=== PATIENT | female | born 1960 | race Two or more races ===

== ENCOUNTER 2021-05-07 06:19 | Day surgery (SDC) | payer OTHER ==
[~2021-05-07 06:19] MED LIST: ANASTROZOLE1 MG PO; LEVOTHYROXINE25 MCG PO
== END 2021-05-07 17:35 | disposition home or self-care (01) ==
LOC: CIR.AMB 06:19
PROVIDERS: ATTEND Surgery
DX: C50.411 Malignant neoplasm of upper-outer quadrant of right female breast (principal); C77.3 Secondary and unspecified malignant neoplasm of axilla and upper limb lymph nodes

== ENCOUNTER 2021-06-15 14:11 | Outpatient (CLI) | payer OTHER | END 2021-06-15 14:20 | disposition home or self-care (01) | LOC: SONOGRAMA 14:11 | PROVIDERS: ATTEND Surgery | DX: N61.1 Abscess of the breast and nipple (principal) ==

== ENCOUNTER 2025-04-16 10:33 | Inpatient (IN) | payer OTHER ==
[~2025-04-16] VITALS: Ht 152.4 cm; Wt 78.5 kg
[~2025-04-16 10:33] MED LIST changes: +PEPCID AC10 MG PO; +PROTONIX40 MG PO; +SYNTHROID50 MCG PO; +[UNRECOGNIZED DRUG - OTHER]
[2025-04-22] MEDS ORDERED: CEFTRIAXONE SODIUM 2,000 MG VIAL ONE (09:38)
[2025-04-22] MEDS ORDERED: METRONIDAZOLE/SODIUM CHLORIDE 500 MG/100 ML PIGGYBACK IV ONE (09:38)
[2025-04-22] MEDS ORDERED: OxyCODONE HCL 5 MG TABLET (ROXICODONE) PO PRN (12:30)
[2025-04-22] MEDS ORDERED: MORPHINE SULFATE 4 MG/ML CARTRIDGE IV PRN (12:30)
[2025-04-22] MEDS ORDERED: RINGERS SOLUTION,LACTATED 1,000 ML IV SCH (12:30)
[2025-04-22] MEDS ORDERED: DEXTROSE 50 % IN WATER 0.5 G/ML VIAL IV PRN (12:30)
[2025-04-22] MEDS ORDERED: ONDANSETRON HCL 2 MG/ML VIAL IV PRN (12:30)
[2025-04-22] MEDS ORDERED: HYOSCYAMINE SULFATE 0.125 MG TAB.SUBL SL SCH (13:00)
[2025-04-22] MEDS ORDERED: ACETAMINOPHEN 500 MG GEL..CAP PO SCH (14:00)
[2025-04-22] MEDS ORDERED: SUGAMMADEX SODIUM 200 MG/2 ML VIAL IV ONE (15:04)
[2025-04-22] MEDS ORDERED: CHLORHEXIDINE GLUCONATE 120 ML BOTTLE TOP ONE (15:27)
[2025-04-22] MEDS ORDERED: ONDANSETRON HCL 2 MG/ML VIAL ONE (16:22)
[2025-04-22] MEDS ORDERED: GABAPENTIN 300 MG CAPSULE PO SCH (17:00)
[2025-04-22] MEDS ORDERED: LEVALBUTEROL HCL 0.63 MG/3 ML SOLUTION IH SCH (19:32)
[2025-04-22] MEDS ORDERED: INSULIN LISPRO 1,000 UNIT/10 ML UNITS SUBCUTANEO PRN (19:45)
[2025-04-22] MEDS ORDERED: DEXTROSE 50 % IN WATER 0.5 G/ML DISP.SYRIN IV PRN (19:45)
[2025-04-22 20:23] LABS: BASO % 0.2 % (0.1-1.2); EOS # 0.00 (0.04-0.54); EOS % 0.0 % (0.7-7.0); LYMPH # 0.82 (1.18-3.74); LYMPH % 6.8 % (19.3-53.1); MEAN PLATELET VOLUME 9.30 fl (9.4-12.4); MONO # 0.77 (0.24-0.82); MONO % 6.4 % (4.7-12.5); NEUT # 10.36 (1.56-6.13); NEUT % 86.3 % (34.0-71.1); RED CELL DISTRIBUTION WIDTH 13.6 % (11.6-14.4)
[2025-04-22 20:26] LABS: BUN CREA RATIO 14.0 (7.0-25.0); CREATININE SERUM 0.84 mg/dL (0.55-1.02); GFR 67.83; OSMOLALITY SERUM 284.0 MOSM/KG (275-295)
[2025-04-22 20:28] LABS: GLUCOSE FASTING 211.0 mg/dL (65-100)
[2025-04-22] MEDS ORDERED: FAMOTIDINE/PF 20 MG/2 ML VIAL ONE (20:37)
[2025-04-22] MEDS ORDERED: FAMOTIDINE/PF 20 MG/2 ML VIAL IV PUSH SCH (21:00)
[2025-04-22 21:58] VITALS: BP 153/75
[2025-04-22 23:50] VITALS: BP 150/70; O2SAT 99
[2025-04-23 05:00] VITALS: BP 134/74
[2025-04-23 06:53] LABS: BASO % 0.1 % (0.1-1.2); EOS # 0.00 (0.04-0.54); EOS % 0.0 % (0.7-7.0); LYMPH # 0.61 (1.18-3.74); LYMPH % 6.3 % (19.3-53.1); MEAN PLATELET VOLUME 9.40 fl (9.4-12.4); MONO # 0.58 (0.24-0.82); MONO % 6.0 % (4.7-12.5); NEUT # 8.46 (1.56-6.13); NEUT % 87.4 % (34.0-71.1); RED CELL DISTRIBUTION WIDTH 13.7 % (11.6-14.4)
[2025-04-23 07:12] LABS: BUN CREA RATIO 12.0 (7.0-25.0); CREATININE SERUM 0.91 mg/dL (0.55-1.02); GFR 61.85; GLUCOSE FASTING 173.0 mg/dL (65-100); OSMOLALITY SERUM 279.0 MOSM/KG (275-295)
[2025-04-23 08:00] VITALS: BP 149/71
[2025-04-23] MEDS ORDERED: MAGNESIUM SULFATE IN WATER 50 ML IV ONE (08:15)
[2025-04-23] MEDS ORDERED: MAGNESIUM SULFATE IN WATER 50 ML IV NR (09:00)
[2025-04-23] MEDS ORDERED: ENOXAPARIN SODIUM 40 MG/0.4 ML SYRINGE SUBCUTANEO SCH (17:00)
[2025-04-23 19:17] VITALS: BP 140/69; O2SAT 95
[2025-04-23] MEDS ORDERED: ENOXAPARIN SODIUM 40 MG/0.4 ML SYRINGE SUBCUTANEO ONE (21:03)
[2025-04-24] VITALS: BP 148/79
[2025-04-24] MEDS ORDERED: PATIENTS OWN MEDICATION (MEDICAMENTO EN PISO) PO SCH (06:00)
[2025-04-24 07:08] LABS: BASO % 0.2 % (0.1-1.2); EOS # 0.01 (0.04-0.54); EOS % 0.1 % (0.7-7.0); LYMPH # 1.91 (1.18-3.74); LYMPH % 16.9 % (19.3-53.1); MEAN PLATELET VOLUME 9.40 fl (9.4-12.4); MONO # 0.71 (0.24-0.82); MONO % 6.3 % (4.7-12.5); NEUT # 8.62 (1.56-6.13); NEUT % 76.1 % (34.0-71.1); RED CELL DISTRIBUTION WIDTH 13.8 % (11.6-14.4)
[2025-04-24 07:27] LABS: BUN CREA RATIO 10.0 (7.0-25.0); CREATININE SERUM 0.7 mg/dL (0.55-1.02); GFR 83.72; GLUCOSE FASTING 146.0 mg/dL (65-100); OSMOLALITY SERUM 278.0 MOSM/KG (275-295)
[2025-04-24] MEDS ORDERED: ENOXAPARIN SODIUM 40 MG/0.4 ML SYRINGE SUBCUTANEO SCH (09:00)
[2025-04-24 09:01] VITALS: BP 112/69
[2025-04-24] MEDS ORDERED: POTASSIUM PHOS,M-BASIC-D-BASIC 3 MM/ML VIAL IV NR (13:00)
[2025-04-24 19:32] VITALS: BP 139/74
[2025-04-25] VITALS: BP 144/79
[2025-04-25 07:27] LABS: BASO % 0.2 % (0.1-1.2); EOS # 0.05 (0.04-0.54); EOS % 0.4 % (0.7-7.0); LYMPH # 1.34 (1.18-3.74); LYMPH % 11.5 % (19.3-53.1); MEAN PLATELET VOLUME 9.40 fl (9.4-12.4); MONO # 0.65 (0.24-0.82); MONO % 5.6 % (4.7-12.5); NEUT # 9.52 (1.56-6.13); NEUT % 82.0 % (34.0-71.1); RED CELL DISTRIBUTION WIDTH 13.5 % (11.6-14.4)
[2025-04-25 08:10] LABS: ALT/SGPT 33.0 U/L (12-78); AST/SGOT 18.0 U/L (15-37); BILIRUBIN TOTAL 0.69 mg/dL (0.3-1.2); BUN CREA RATIO 12.0 (7.0-25.0); CREATININE SERUM 0.86 mg/dL (0.55-1.02); GFR 66.02; GLOBULINA 3.2 G/DL (2.4-3.5); GLUCOSE FASTING 188.0 mg/dL (65-100); OSMOLALITY SERUM 278.0 MOSM/KG (275-295)
[2025-04-25 08:12] LABS: BUN CREA RATIO 12.0 (7.0-25.0); CREATININE SERUM 0.86 mg/dL (0.55-1.02); GFR 66.02; GLUCOSE FASTING 188.0 mg/dL (65-100); OSMOLALITY SERUM 278.0 MOSM/KG (275-295)
[2025-04-25 08:13] VITALS: BP 129/71; O2SAT 98
[2025-04-25] MEDS ORDERED: PANTOPRAZOLE SODIUM 40 MG/VIAL VIAL IV STA (08:40)
[2025-04-25 16:00] VITALS: BP 131/70; O2SAT 98
[2025-04-25 18:47] VITALS: BP 147/70; O2SAT 94
[2025-04-25] MEDS ORDERED: FAMOTIDINE/PF 20 MG/2 ML VIAL IV PUSH SCH (21:00)
[2025-04-26 00:40] VITALS: BP 135/74; O2SAT 95
[2025-04-26] MEDS ORDERED: PANTOPRAZOLE SODIUM 40 MG/VIAL VIAL IV SCH ×2 (06:00→12:00)
[2025-04-26 07:37] LABS: BASO % 0.1 % (0.1-1.2); EOS # 0.04 (0.04-0.54); EOS % 0.4 % (0.7-7.0); LYMPH # 1.09 (1.18-3.74); LYMPH % 9.8 % (19.3-53.1); MEAN PLATELET VOLUME 9.80 fl (9.4-12.4); MONO # 0.76 (0.24-0.82); MONO % 6.8 % (4.7-12.5); NEUT # 9.19 (1.56-6.13); NEUT % 82.6 % (34.0-71.1); RED CELL DISTRIBUTION WIDTH 13.4 % (11.6-14.4)
[2025-04-26 08:00] VITALS: BP 130/77; O2SAT 98
[2025-04-26 08:03] LABS: ALT/SGPT 28.0 U/L (12-78); AST/SGOT 16.0 U/L (15-37); BILIRUBIN TOTAL 0.75 mg/dL (0.3-1.2); BUN CREA RATIO 14.0 (7.0-25.0); CREATININE SERUM 0.79 mg/dL (0.55-1.02); GFR 72.81; GLOBULINA 3.1 G/DL (2.4-3.5); GLUCOSE FASTING 139.0 mg/dL (65-100); OSMOLALITY SERUM 277.0 MOSM/KG (275-295)
[2025-04-26] MEDS ORDERED: LEVALBUTEROL HCL 0.63 MG/3 ML SOLUTION IH SCH (09:00)
[2025-04-26 10:52] LABS: URINE APPEARANCE Clear; URINE BILIRRUBIN Negative (NEGATIVE); URINE BLOOD Large; URINE COLOR Yellow; URINE GLUCOSE Negative (NEGATIVE); URINE LEUKOCYTE Small; URINE NITRATE Negative; URINE UROBILINOGEN 0.2 E.U./dl
[2025-04-26 10:56] LABS: URINE BACTERIA 128.3 uL (0.0-1933); URINE EPITHELIAL CELLS 21.5 uL (0.0-38.8); URINE RBC 3448.9 uL (0.0-20.8); URINE WBC 66.4 uL (0.0-23.2)
[2025-04-26 11:49] LABS: URINE CAST 0.00 uL (0.0-1.40); URINE KETONE 80 (NEGATIVE); URINE PROTEIN 100 (NEGATIVE)
[2025-04-26 11:54] LABS: TYPE CELLS TRANSITIONAL
[2025-04-26] MEDS ORDERED: METOCLOPRAMIDE HCL 10 MG in DEXTROSE 5 % IN WATER 50 ML IV SCH (12:00)
[2025-04-26] MEDS ORDERED: PIPERACILLIN/TAZOBACTAM SODIUM 3.375 GM in 0.9 % SODIUM CHLORIDE 100 ML IV SCH (13:39)
[2025-04-26 16:00] VITALS: BP 128/70; O2SAT 97
[2025-04-26] MEDS ORDERED: AA 4.25%/CAL/LYTES/DEXT 5% 1,000 ML PERIFERAL SCH (17:00)
[2025-04-27 00:13] VITALS: BP 132/76; O2SAT 96
[2025-04-27 08:00] VITALS: BP 147/74; BP 148/72; O2SAT 98
[2025-04-27] MEDS ORDERED: MORPHINE SULFATE 4 MG/ML CARTRIDGE IV PRN (11:00)
[2025-04-27 13:44] LABS: BUN CREA RATIO 24.0 (7.0-25.0); CREATININE SERUM 0.71 mg/dL (0.55-1.02); GFR 82.36; GLUCOSE FASTING 193.0 mg/dL (65-100); OSMOLALITY SERUM 286.0 MOSM/KG (275-295)
[2025-04-27 15:43] LABS: BASO % 0.2 % (0.1-1.2); EOS # 0.05 (0.04-0.54); EOS % 0.4 % (0.7-7.0); LYMPH # 1.36 (1.18-3.74); LYMPH % 10.5 % (19.3-53.1); MEAN PLATELET VOLUME 9.50 fl (9.4-12.4); MONO # 0.88 (0.24-0.82); MONO % 6.8 % (4.7-12.5); NEUT # 10.58 (1.56-6.13); NEUT % 81.8 % (34.0-71.1); RED CELL DISTRIBUTION WIDTH 13.8 % (11.6-14.4)
[2025-04-27 16:00] VITALS: BP 131/78; O2SAT 97
[2025-04-27] MEDS ORDERED: PANTOPRAZOLE SODIUM 40 MG/VIAL VIAL IV SCH ×2 (17:00→21:00)
[2025-04-28 00:04] VITALS: BP 123/72; O2SAT 98
[2025-04-28] MEDS ORDERED: LORazepam 2 MG/ML VIAL IV NR (08:00)
[2025-04-28 08:43] VITALS: BP 165/78; O2SAT 96
[2025-04-28] MEDS ORDERED: DIATRIZOATE MEGLUMINE, SODIUM 30 ML BOTTLE PO ONE (12:00)
[2025-04-28] MEDS ORDERED: DIATRIZOATE MEGLUMINE, SODIUM 30 ML BOTTLE PO NR (12:00)
[2025-04-28 15:54] VITALS: BP 137/71; O2SAT 96
[2025-04-28 17:02] VITALS: BP 141/78; O2SAT 95
[2025-04-28] MEDS ORDERED: FAT EMULSIONS 250 ML IV SCH (21:00)
[2025-04-29 01:33] VITALS: BP 133/82; O2SAT 97
[2025-04-29 06:20] LABS: BASO % 0.3 % (0.1-1.2); EOS # 0.27 (0.04-0.54); EOS % 2.6 % (0.7-7.0); LYMPH # 1.18 (1.18-3.74); LYMPH % 11.5 % (19.3-53.1); MEAN PLATELET VOLUME 9.50 fl (9.4-12.4); MONO # 0.67 (0.24-0.82); MONO % 6.5 % (4.7-12.5); NEUT # 8.03 (1.56-6.13); NEUT % 78.5 % (34.0-71.1); RED CELL DISTRIBUTION WIDTH 13.8 % (11.6-14.4)
[2025-04-29 07:04] LABS: BUN CREA RATIO 25.0 (7.0-25.0); CREATININE SERUM 0.73 mg/dL (0.55-1.02); GFR 79.76; OSMOLALITY SERUM 283.0 MOSM/KG (275-295)
[2025-04-29 07:06] LABS: GLUCOSE FASTING 204.0 mg/dL (65-100)
[2025-04-29 09:31] VITALS: BP 145/57; O2SAT 98
[2025-04-29] MEDS ORDERED: MULTIVIT INFUSN,ADULT 4,VIT K 10 ML VIAL IV SCH (12:00)
[2025-04-29] MEDS ORDERED: THIAMINE HCL 100 MG/ML 2 ML VIAL IV NR (13:45)
[2025-04-29] MEDS ORDERED: SOD FERRIC GLUC COMPLX/SUCROSE 62.5 MG in 0.9 % SODIUM CHLORIDE 50 ML IV SCH (13:45)
[2025-04-29 17:08] VITALS: BP 150/81; O2SAT 95
[2025-04-29] MEDS ORDERED: MIDAZOLAM HCL 2 MG/2 ML VIAL IV PUSH ONE (18:15)
[2025-04-29] MEDS ORDERED: fentaNYL CITRATE 50 MCG/ML AMPUL IV PUSH ONE (18:15)
[2025-04-29] MEDS ORDERED: DIPHENHYDRAMINE HCL 50 MG/ML VIAL 1ML IV SCH (21:00)
[2025-04-30 01:27] VITALS: BP 121/74; O2SAT 98
[2025-04-30 07:32] LABS: BASO % 0.5 % (0.1-1.2); EOS # 0.31 (0.04-0.54); EOS % 4.9 % (0.7-7.0); LYMPH # 1.39 (1.18-3.74); LYMPH % 22.0 % (19.3-53.1); MEAN PLATELET VOLUME 10.50 fl (9.4-12.4); MONO # 0.54 (0.24-0.82); MONO % 8.5 % (4.7-12.5); NEUT # 3.98 (1.56-6.13); NEUT % 63.0 % (34.0-71.1); RED CELL DISTRIBUTION WIDTH 13.6 % (11.6-14.4)
[2025-04-30 08:00] LABS: ALT/SGPT 22.0 U/L (12-78); AST/SGOT 20.0 U/L (15-37); BILIRUBIN TOTAL 0.42 mg/dL (0.3-1.2); BUN CREA RATIO 33.0 (7.0-25.0); CREATININE SERUM 0.36 mg/dL (0.55-1.02); GFR 180.34; GLOBULINA 3.2 G/DL (2.4-3.5); GLUCOSE FASTING 169.0 mg/dL (65-100); OSMOLALITY SERUM 283.0 MOSM/KG (275-295)
[2025-04-30] MEDS ORDERED: CLONAZEPAM 0.5 MG TABLET PO PRN (08:45)
[2025-04-30] MEDS ORDERED: THIAMINE HCL 100 MG/ML 2 ML VIAL IV SCH (09:00)
[2025-04-30] MEDS ORDERED: SOD FERRIC GLUC COMPLX/SUCROSE 62.5 MG in 0.9 % SODIUM CHLORIDE 50 ML IV SCH (09:00)
[2025-04-30 09:04] VITALS: BP 141/68; O2SAT 98
[2025-04-30 16:37] VITALS: BP 128/74; BP 136/75; O2SAT 95
[2025-04-30] MEDS ORDERED: FAT EMULSIONS 250 ML IV SCH (21:00)
[2025-05-01 00:38] VITALS: BP 123/60; O2SAT 95
[2025-05-01 07:30] VITALS: BP 151/73; O2SAT 95
[2025-05-01] MEDS ORDERED: IOVERSOL 320 MG/ML - 50 ML VIAL IV ONE ×2 (15:50→15:51)
[2025-05-01] MEDS ORDERED: POVIDONE-IODINE 118 ML BOTT TOP ONE (15:51)
[2025-05-01 20:09] LABS: INR 1.08
[2025-05-02 00:49] VITALS: BP 138/62; O2SAT 95
[2025-05-02 06:16] LABS: BASO % 0.7 % (0.1-1.2); EOS # 0.24 (0.04-0.54); EOS % 3.2 % (0.7-7.0); LYMPH # 1.58 (1.18-3.74); LYMPH % 21.3 % (19.3-53.1); MEAN PLATELET VOLUME 9.40 fl (9.4-12.4); MONO # 0.42 (0.24-0.82); MONO % 5.7 % (4.7-12.5); NEUT # 5.02 (1.56-6.13); NEUT % 67.6 % (34.0-71.1); RED CELL DISTRIBUTION WIDTH 13.1 % (11.6-14.4)
[2025-05-02 07:10] LABS: BUN CREA RATIO 22.0 (7.0-25.0); CREATININE SERUM 0.41 mg/dL (0.55-1.02); GFR 155.21; GLUCOSE FASTING 137.0 mg/dL (65-100); OSMOLALITY SERUM 280.0 MOSM/KG (275-295)
[2025-05-02 08:54] VITALS: BP 101/54; O2SAT 97
[2025-05-02] MEDS ORDERED: MORPHINE SULFATE 4 MG/ML CARTRIDGE IV PRN (10:45)
[2025-05-02] MEDS ORDERED: MIDAZOLAM HCL 2 MG/2 ML VIAL IV PUSH ONE (17:00)
[2025-05-02] MEDS ORDERED: fentaNYL CITRATE 50 MCG/ML AMPUL IV PUSH ONE (17:00)
[2025-05-02 18:54] VITALS: BP 129/76; O2SAT 95
[2025-05-03 01:26] VITALS: BP 114/62; O2SAT 97
[2025-05-03 08:00] VITALS: BP 144/68; O2SAT 95
[2025-05-03 16:00] VITALS: BP 94/62; O2SAT 98
[2025-05-03] MEDS ORDERED: PIPERACILLIN/TAZOBACTAM SODIUM 3.375 GM in 0.9 % SODIUM CHLORIDE 100 ML IV SCH (18:00)
[2025-05-03] MEDS ORDERED: SODIUM CL 0.9% 50 ML IV.SOLN IV ONE (18:17)
[2025-05-04 00:35] VITALS: BP 106/62; O2SAT 97
[2025-05-04 08:00] VITALS: BP 134/68; O2SAT 95
[2025-05-04 16:54] VITALS: BP 121/72; O2SAT 98
[2025-05-05 01:20] VITALS: BP 137/74; O2SAT 97
[2025-05-05 07:24] LABS: BASO % 1.2 % (0.1-1.2); EOS # 0.30 (0.04-0.54); EOS % 5.2 % (0.7-7.0); LYMPH # 1.57 (1.18-3.74); LYMPH % 27.3 % (19.3-53.1); MEAN PLATELET VOLUME 9.50 fl (9.4-12.4); MONO # 0.31 (0.24-0.82); MONO % 5.4 % (4.7-12.5); NEUT # 3.46 (1.56-6.13); NEUT % 60.0 % (34.0-71.1); RED CELL DISTRIBUTION WIDTH 14.2 % (11.6-14.4)
[2025-05-05 07:50] LABS: INR 1.06
[2025-05-05 07:54] LABS: ALT/SGPT 25 U/L (12-78); AST/SGOT 19 U/L (15-37); BILIRUBIN TOTAL 0.25 mg/dL (0.3-1.2); BILIRUBIN,CONJUGATED < 0.10 mg/dL (0.0-0.2); BUN CREA RATIO 18 (7.0-25.0); CHOL HDL RATIO 7.2 (0-5.0); CREATININE SERUM 0.38 mg/dL (0.55-1.02); GFR 169.44; GLOBULINA 3.4 G/DL (2.4-3.5); GLUCOSE FASTING 136 mg/dL (65-100); HDL 18 mg/dl (40-60); LDL 76 mg/dl (0-130); OSMOLALITY SERUM 285 MOSM/KG (275-295); VLDL 34 (0-39)
[2025-05-05 08:00] VITALS: BP 129/70; O2SAT 100
[2025-05-05] MEDS ORDERED: RINGERS SOLUTION,LACTATED 1,000 ML IV SCH (09:00)
[2025-05-05 09:10] LABS: UREA CLEARANCE 29.3 ML/MIN
[2025-05-05] MEDS ORDERED: DEXTROSE 5%-WATER 50ML IV.SOLN ONE (16:25)
[2025-05-05 16:49] VITALS: BP 132/70; O2SAT 96
[2025-05-06 00:41] VITALS: BP 146/69; O2SAT 95
[2025-05-06 08:00] VITALS: BP 135/74
[2025-05-06] MEDS ORDERED: CLONAZEPAM 0.5 MG TABLET PO PRN (10:15)
[2025-05-06 16:18] VITALS: BP 107/67; O2SAT 95
[2025-05-07 00:46] VITALS: BP 114/65; O2SAT 98
[2025-05-07 07:44] LABS: BASO % 1.0 % (0.1-1.2); EOS # 0.36 (0.04-0.54); EOS % 6.9 % (0.7-7.0); LYMPH # 1.34 (1.18-3.74); LYMPH % 25.6 % (19.3-53.1); MEAN PLATELET VOLUME 9.60 fl (9.4-12.4); MONO # 0.33 (0.24-0.82); MONO % 6.3 % (4.7-12.5); NEUT # 3.13 (1.56-6.13); NEUT % 59.6 % (34.0-71.1); RED CELL DISTRIBUTION WIDTH 15.0 % (11.6-14.4)
[2025-05-07 08:50] LABS: BUN CREA RATIO 15.0 (7.0-25.0); CREATININE SERUM 0.61 mg/dL (0.55-1.02); GFR 98.13; GLUCOSE FASTING 147.0 mg/dL (65-100); OSMOLALITY SERUM 283.0 MOSM/KG (275-295)
[2025-05-07 16:28] VITALS: BP 108/65; O2SAT 95
[2025-05-08 01:29] VITALS: BP 115/70; O2SAT 97
[2025-05-08 10:20] VITALS: BP 119/78; O2SAT 98
[2025-05-08] MEDS ORDERED: IOVERSOL 320 MG/ML - 50 ML VIAL IV ONE (16:03)
[2025-05-08] MEDS ORDERED: BUPIVACAINE HCL/Mpf 0.5% 10ML VIAL ONE (16:13)
[2025-05-08] MEDS ORDERED: LIDOCAINE HCL 1%/EPINEPHRINE 20ML VIAL IJ ONE (16:14)
[2025-05-08] MEDS ORDERED: MENTHOL/CETYLPYRD CL 1 LOZENGE MM SCH (17:00)
[2025-05-08 22:03] VITALS: BP 112/47; O2SAT 98
[2025-05-09 01:04] VITALS: BP 127/64; O2SAT 96
[2025-05-09 06:48] LABS: BASO % 0.7 % (0.1-1.2); EOS # 0.35 (0.04-0.54); EOS % 6.4 % (0.7-7.0); LYMPH # 1.10 (1.18-3.74); LYMPH % 20.1 % (19.3-53.1); MEAN PLATELET VOLUME 9.30 fl (9.4-12.4); MONO # 0.38 (0.24-0.82); MONO % 6.9 % (4.7-12.5); NEUT # 3.59 (1.56-6.13); NEUT % 65.7 % (34.0-71.1); RED CELL DISTRIBUTION WIDTH 15.3 % (11.6-14.4)
[2025-05-09 07:24] LABS: BUN CREA RATIO 21.0 (7.0-25.0); CREATININE SERUM 0.53 mg/dL (0.55-1.02); GFR 115.41; GLUCOSE FASTING 134.0 mg/dL (65-100); OSMOLALITY SERUM 281.0 MOSM/KG (275-295)
== END 2025-05-09 10:49 | disposition home or self-care (01) | DRG 330 ==
LOC: OB/GYN 04-22 09:00 → SURH 04-22 09:00 → O/R 04-22 09:00 → SURH 04-22 12:15 → OB/GYN 04-22 16:43 → SURH 04-25 15:36
PROVIDERS: Internal Medicine Geriatric Medicine; Internal Medicine Infectious Disease; Radiology Vascular & Interventional Radiology; Surgery; ADMIT Surgery; ATTEND Surgery
PROC: 0DBP4ZZ Excision of Rectum, Percutaneous Endoscopic Approach (ICD-10-PCS; 2025-04-22)
PROC: 07BC4ZZ Excision of Pelvis Lymphatic, Percutaneous Endoscopic Approach (ICD-10-PCS; 2025-04-22)
PROC: 0DTN4ZZ Resection of Sigmoid Colon, Percutaneous Endoscopic Approach (ICD-10-PCS; principal; 2025-04-22 13:15)
PROC: 0D9670Z Drainage of Stomach with Drainage Device, Via Natural or Artificial Opening (ICD-10-PCS; 2025-04-25)
PROC: 3E0G76Z Introduction of Nutritional Substance into Upper GI, Via Natural or Artificial Opening (ICD-10-PCS; 2025-04-25)
PROC: BW21YZZ Computerized Tomography (CT Scan) of Abdomen and Pelvis using Other Contrast (ICD-10-PCS; 2025-04-28)
PROC: 02HV33Z Insertion of Infusion Device into Superior Vena Cava, Percutaneous Approach (ICD-10-PCS; 2025-04-28)
PROC: 0W9J3ZZ Drainage of Pelvic Cavity, Percutaneous Approach (ICD-10-PCS; 2025-04-29)
PROC: BW21YZZ Computerized Tomography (CT Scan) of Abdomen and Pelvis using Other Contrast (ICD-10-PCS; 2025-04-30)
PROC: BT14ZZZ Fluoroscopy of Kidneys, Ureters and Bladder (ICD-10-PCS; 2025-05-01)
PROC: 0T9330Z Drainage of Right Kidney Pelvis with Drainage Device, Percutaneous Approach (ICD-10-PCS; 2025-05-02)
PROC: BW2GYZZ Computerized Tomography (CT Scan) of Pelvic Region using Other Contrast (ICD-10-PCS; 2025-05-06)
PROC: BT11ZZZ Fluoroscopy of Right Kidney (ICD-10-PCS; 2025-05-07)
PROC: 0T9030Z Drainage of Right Kidney with Drainage Device, Percutaneous Approach (ICD-10-PCS; 2025-05-08)
DX: C19 Malignant neoplasm of rectosigmoid junction (principal); K56.7 Ileus, unspecified; K62.5 Hemorrhage of anus and rectum; R59.0 Localized enlarged lymph nodes; E03.9 Hypothyroidism, unspecified; E11.9 Type 2 diabetes mellitus without complications; Z79.4 Long term (current) use of insulin; D72.829 Elevated white blood cell count, unspecified; D64.9 Anemia, unspecified; R07.9 Chest pain, unspecified; N99.522 Malfunction of incontinent external stoma of urinary tract

== ENCOUNTER 2025-07-13 12:40 | Emergency (ER) | payer OTHER ==
[~2025-07-13] VITALS: Ht 162.6 cm; Wt 72.6 kg
[2025-07-13 13:13] VITALS: BP 160/90; O2SAT 97
== END 2025-07-13 14:39 | disposition home or self-care (01) ==
LOC: ER 12:40
DX: N99.522 Malfunction of incontinent external stoma of urinary tract (principal); I10 Essential (primary) hypertension; E11.9 Type 2 diabetes mellitus without complications; E03.8 Other specified hypothyroidism